=== PATIENT | male | born 1950 | race Caucasian/White ===

== ENCOUNTER 2016-05-22 15:26 | Emergency (ER) | payer OTHER, MEDICARE ==
[2016-05-22 13:19] LABS: BASOPHILS 0.3 %; BASOPHILS ABSOLUTE 0.03 10/3/uL (0.0-0.16); EOSINOPHILS ABSOLUTE 0.09 10/3/uL (0.0-0.53); IMMATURE GRANULOCYTES 0.2 %; IMMATURE GRANULOCYTES ABSOLUTE 0.02 10/3/uL (0.0-0.11); LYMPHOCYTES 10.4 %; MEAN CORPUS HGB CONC 30.9 g/dL (32.0-36.0); MEAN CORPUSCULAR HEMOGLOB 21.8 pg (26.0-34.0); MEAN CORPUSCULAR VOLUME 70.5 fL (80-100); MEAN PLATELET VOLUME 8.6 fL (9.2-13.0); MONOCYTES 8.4 %; MONOCYTES ABSOLUTE 0.73 10/3/uL (0.21-1.20); NEUTROPHILS 79.7 %; PLATELET COUNT 479 10/3/uL (150-400); RBC DISTRIBUTION WIDTH 14.3 % (12.0-16.0); RED CELL COUNT 4.04 10/6/uL (4.7-6.1); WHITE BLOOD CELLS 8.7 10/3/uL (4.5-10.5)
[2016-05-22 13:20] LABS: HEMATOCRIT 28.5 % (40.0-51.0); HEMOGLOBIN 8.8 g/dL (13.6-17.8); MANUAL DIFF NO %
[2016-05-22 13:40] LABS: PLATELET ESTIMATE SLT INC (ADEQUATE)
[2016-05-22 13:41] LABS: A/G RATIO 0.7 (0.7-1.9); ALKALINE PHOSPHATASE 103 U/L (45-117); BUN (BLOOD UREA NITROGEN) 10 MG/DL (6-23); CALCIUM, SERUM 8.9 MG/DL (8.5-10.4); CHLORIDE, SERUM 104 MMOL/L (96-112); CO2 (CARBON DIOXIDE) 22 MMOL/L (24-34); CREATININE 0.99 MG/DL (0.70-1.30); GFR AFRICAN AMERICAN 92 ML/MIN (>=60); GFR NON AFRICAN AMERICAN 79 ML/MIN (>=60); GLOBULIN 4.3 G/DL (2.5-4.1); GLUCOSE, SERUM 102 MG/DL (60-99); SGOT(AST) 16 U/L (5-40); SGPT(ALT) 10 U/L (5-65); SODIUM, SERUM 137 MMOL/L (135-148); TOTAL BILIRUBIN 0.8 MG/DL (0-1.2); TOTAL PROTEIN 7.3 G/DL (6.0-8.5)
[2016-05-22 14:18] LABS: LACTATE 1.1 MMOL/L (0.3-2.4)
[2016-05-22 15:20] LABS: ASCORBIC ACID (UR NOT ORDER) NEG (NEG); BILIRUBIN, URINE NEGATIVE (NEG); ER URINALYSIS TAT 0 Hrs 13 Mins; KETONE, URINE NEGATIVE (NEG); LEUKOCYTE ESTERASE(NOT OR NEG (NEG); NITRITE (URINE) NEG (NEG); WBC (NOT ORDERED) (RFLEX) 1 (0-5)
[~2016-05-22 15:26] MED LIST: B12100T
== END 2016-05-22 17:08 | disposition home or self-care (01) ==
LOC: ER 15:26
PROVIDERS: Hospitalist
DX: C18.9 Malignant neoplasm of colon, unspecified (principal)
CPT/HCPCS: 80053; 81001; 83605; 83690; 85025; 96374; 99284; J1170; J2405